=== PATIENT | female | born 1950 ===

== ENCOUNTER 2023-01-15 07:34 | Day surgery (SDC) | payer OTHER ==
[2023-01-12 11:07] LABS: HEMATOCRIT 39.4 % (36.0-45.00); HEMOGLOBIN 13.5 g/dL (12.0-15.00); MEAN CELL VOLUME 91.3 fL (80.00-100.00); MEAN CORPUSCULAR HEMOGLOBIN 31.2 pg (27.00-32.0); MEAN CORPUSCULAR HGB CONC 34.1 g/dl (32.0-36.0); PLATELET COUNT 216 K/uL (150-450); RED BLOOD COUNT 4.32 M/uL (4.00-6.00); RED CELL DISTRIBUTION WIDTH 13.2 % (11.5-14.5)
[~2023-01-15] VITALS: Ht 160 cm; Wt 66.7 kg
[~2023-01-15 07:34] MED LIST: ALENDRONATE SOD70 MG PO; AMLOD PO; CLONAZEPAM0.5 MG PO; ESTAZOLAM2 MG PO; FLUOX PO; FLUOXE PO; LIPITOR40 M1 PO; TIROSINT25 MCG PO; TOPROL XL25 M1 PO
[2023-01-15] MEDS ORDERED: TRAM1TAB98 PO (11:30)
[2023-01-15] MEDS ORDERED: COLACE100 MG PO (11:30)
== END 2023-01-15 16:30 | disposition home or self-care (01) ==
LOC: CIR.AMB 07:34
PROVIDERS: ATTEND Surgery
DX: D12.8 Benign neoplasm of rectum (principal); K62.89 Other specified diseases of anus and rectum; I10 Essential (primary) hypertension; Z20.822 Contact with and (suspected) exposure to COVID-19